=== PATIENT | female | born 1975 | race Caucasian/White ===

== ENCOUNTER 2016-12-05 11:00 | Day surgery (SDC) | payer BC ==
[~2016-12-05 11:00] MED LIST: RINGERS SOLUTION,LACTATED 1,000 ML IV PRN
--- OUTSIDE RECORDS SUMMARY | 2016-12-05 11:04 | XMS REPORT | Continuity of Care Document ---
:1975 Author Organization [facility] ([facility]) Address [address] [place] [address] Phone [phone] Care Team Providers Name Role Phone Alonso Jimenez Primary Care Provider [phone] Source Comments This disclosure is being made pursuant to the Care Everywhere program, applicable federal and state laws, and may not contain all informaitonavailable regarding this patient.[facility] ([facility]) Active Allergies and Adverse Reactions No Active Allergies Current Medications Not on file Active Problems Problem Noted Date Scoliosis (and kyphoscoliosis), idiopathic 10/24/2006 Social History Tobacco Use Types Packs/Day Years Used Date Never Assessed Last Filed Vital Signs Vital Sign Reading Time Taken Blood Pressure 112/56 10/24/2006 2:30 PM GRIT [employer]ER Pulse 70 10/24/2006 2:30 PM [employer] Temperature 35.8 C (96.44 F) 10/24/2006 2:30 PM GR[employer]ER Respiratory Rate - - Height 1.683 m (5' 6.25") 10/24/2006 2:30 PM [employer] Weight 77.697 kg (171 lb 4.6 oz) 10/24/2006 2:30 PM GRIT [employer]ER Body Mass Index 27.43 10/24/2006 2:30 PM GRIT [employer]ER Oxygen Saturation - - Plan of Care Health Maintenance Due Date Last Done Comments Hepatitis B Vaccine (1 of 3 1977 - Primary Series) Tdap Vaccine 1988 Lipid Disorder Screening 1995 MMR Vaccine 1995 Td Vaccine 1995 Cervical Cancer Screening 08/12/2007 08/12/2004, Additional history exists 09/21/2003, 08/13/2003 Influenza Vaccine: Seasonal 05/22/2016 (#1) Results from Last 3 Months Not on file
[2016-12-05 11:22] LABS: Hematocrit 38.1 % (37.0-47.0); Hemoglobin 12.5 gm/dL (12.5-16.0); Mean Cell Volume 92.5 fl (78-100); Mean Corpuscular Hemoglobin 30.3 pg (27-31); Mean Corpuscular Hgb Conc 32.8 g/dl (32-36); Mean Platelet Volume 8.9 fl (6.0-9.5); Neutrophil # 2.9 K/mm3 (1.3-6.0); Neutrophil % 57.8 % (42-75.0); Platelet Count 239 K/mm3 (150-450); Red Blood Count 4.12 M/mm3 (4.2-5.4)
[2016-12-05] MEDS ORDERED: RINGERS SOLUTION,LACTATED 1,000 ML IV ONE (11:56)
[2016-12-05] MEDS ORDERED: IBUPROFEN 600 MG TABLET PO PRN (13:25)
[2016-12-05] MEDS ORDERED: HYDROcodone/ACETAMINOPHEN 1 EACH TABLET PO PRN (13:26)
--- NOTE | 2016-12-05 13:27 | OR ---
Operative Report - Dictated Report Narrative: Operative Report 12/05/16 Hysteroscopy Dilatation and Curettage Preoperative Diagnosis: Metrorrhagia, Cervical Stenosis Postoperative Diagnosis: Metrorrhagia, Cervical Stenosis Procedure: Hysteroscopy Dilatation and Curettage Surgeon: Silvia Jorge M.D. Anesthesia: Martin Jang CRNA, IV sedation Findings: Cervical stenosis, sharp dissection with uterine packing forceps and Metzenbaum scissors, then with hysteroscopic guidance to manuever the canal. Sound 6 cm. Little tissue with curettage. No polyps or fibroids visualized. Fluids: 400 ml EBL: Minimal Drains: None Complications: None Condition: Stable Pathology: Endometrial curettings Procedure: The patient was taken to the operating room with IV fluids running. She was placed in the dorsal lithotomy position after anesthesia was induced. A bivalve speculum was placed in the vagina. The anterior lip of the cervix was grasped with a single-tooth tenaculum. The external os was stenotic. Uterine packing forceps used to bluntly dissect until the scar had opened slightly and the canal could be visualized. Metzenbaum scissors was used to then open the endocervical canal. Hysteroscope was used to maneuver through the remainder of the endocervical canal. Uterine sound was passed into the endometrial cavity with ease. Uterine sound was 6 cm. The cervix was dilated with Pipe dilators. The hysteroscope was introduced into the endometrial cavity. The cavity was distended with normal saline. [place] were visualized bilaterally. There was no evidence of endometrial polyp or submucosal fibroid. The hysteroscope was removed. The cavity was sharply curetted without difficulty. The hysteroscope was once again introduced into the cavity. The cavity was completely curetted. The hysteroscope was removed. The single-tooth tenaculum was removed. Sites were hemostatic. The speculum was removed from the vagina. Sponge counts were correct 2. The patient tolerated the procedure well.
[2016-12-05 14:17] VITALS: BP 140/75
== END 2016-12-05 11:01 | disposition home or self-care (01) ==
LOC: AMB 11:00
PROVIDERS: ATTEND Obstetrics & Gynecology
PROC: 0UDB8ZX Extraction of Endometrium, Via Natural or Artificial Opening Endoscopic, Diagnostic (ICD-10-PCS; principal; 2016-12-05 12:00)
DX: N88.2 Stricture and stenosis of cervix uteri (principal); N92.1 Excessive and frequent menstruation with irregular cycle; N80.0 Endometriosis of uterus; F90.9 Attention-deficit hyperactivity disorder, unspecified type; Z68.26 Body mass index [BMI] 26.0-26.9, adult